=== PATIENT | female | born 1940 | race Caucasian/White ===

== ENCOUNTER 2019-01-11 13:43 | Day surgery (SDC) | payer OTHER, SELFPAY ==
[2019-01-10 14:44] VITALS: BMI 26.2
--- NOTE | 2019-01-11 | DI.RAD.S_ITS ---
PROCEDURE: XR LUMBAR SPINE 1V INDICATIONS: L4-5 LAMINECTOMY TECHNIQUE: 1 fluoroscopic view of the lumbar spine were acquired. COMPARISON: None available. FINDINGS: Needle is located at the L3-L4 level. 4 prong instrument is immediately posterior to the L4-L5 level. IMPRESSION: Intraoperative fluoroscopic image for surgical planning. Dictated by: Bj Garcia M.D. on 01/11/2019 at 17:11 Approved by: Bj Garcia M.D. on 01/11/2019 at 17:13
[2019-01-11 14:16] VITALS: BP 163/78; PULSE 81; RESP 16; TEMP 36.6; O2SAT 98; BMI 26.2
[2019-01-11] MEDS: LACTATED RINGERS 1,000 ML 42 ML IV (14:50)
--- NOTE | 2019-01-11 14:59 | PM.PREOP ---
Pre-operative Note Interval Note History & Physical reviewed/Exam performed by Physician: Yes Changes to H&P: No
[2019-01-11] MEDS: CEFAZOLIN 1 GM/50 ML FROZ.PIGGY IV (15:34)
--- NOTE | 2019-01-11 16:05 | SUR.OPER ---
Prone on spine table, head in foam head support, padded chest and pelvic supports, gel pad at knees, lower legs supported by pillows; nipples, genitalia and toes free of pressure, arms secured on foam padded arm boards at <90 degrees abduction. Tape over blanket at thigh secured to table.
[2019-01-11] MEDS: BUPIVACAINE 0.25% W/ EPI 30 ML VIAL INJ (16:12)
--- NOTE | 2019-01-11 16:51 | PM.OP.1 ---
Operative Date/Time/Diagnoses Date of procedure: 01/11/19 Time of procedure: 15:51 Pre-op diagnosis: 1. L4-5 spinal stenosis 2. Lumbar radiculopathy Post-op diagnosis: same Procedure & Clinicians Procedure: 1. L4-5 laminectomy with bilateral partial facetecomies 2. Utilization of microsurgical technique and operating microscope Same procedure as scheduled: Yes Indications: Patient has been having chronic back pain and worsening lumbar radiculopathy. Patient failed multiple conservative management with worsening pain weakness and numbness in her lower extremity. Patient has been having difficulty performing activity of daily living. After discussing risks benefits of treatment options, patient elected proceed with surgery. Surgeon: Kaitlynn Torres Metal Fabricator: Nita Cruz'Brien Click Yes if Unassisted: No Anesthesia Type: General Operative Notes Closure Type: primary Specimen(s): none sent Estimated Blood Loss (mL): 5 Blood products transfused: none Procedure in detail: Patient was seen in the preoperative area. Risks and benefits of the surgery was discussed with the patient. Informed consent was obtained from the patient and placed in the chart. Surgical site was marked. Patient was taken to the operative room. General anesthesia was administered. Prophylactic antibiotic was given to the patient less than 30 min before the incision was made. Patient was placed into a prone position on the [place] table. Patient's back was then prepped and draped in the sterile fashion. Time-out was performed at this time. Using AP and lateral C-arm imaging the interval between L4-5 was identified and marked on patient's back. A midline incision was made over the L4-5 interval. The fascia was incised in line with skin incision. Dissection was made down to the level of L4 lamina using bovie and a eubanks. Using microsurgical technique and operating microscope, a L4 laminectomy was performed using a Kerrison rongeur, Leksell rongeur and micro pituitary. Liagamentum flavum was resected at the site of the laminotomy. Either side of the dura was exposed. Bilateral partial facetcomies was performed to further decompress the lateral recess. After the laminectomy was completed, the area medial lateral superior and inferior to the area of the laminectomy was inspected and explored using a micro curette. No other impinging structure was identified. The wound was then irrigated with sterile normal saline. The deep fascia was closed with 1-0 Vicryl. The subcutaneous tissue was closed with 2-0 Vicryl. The skin was closed with skin ilya. Patient tolerated the procedure well. There were no complications. Patient was transferred recovery room in stable condition. Complications: none Condition: stable Disposition: same day surgery Plan for aftercare: Discharge to home
[2019-01-11 17:10] VITALS: BP 149/61; PULSE 80; RESP 18; TEMP 36.8; O2SAT 99
[2019-01-11 17:15] VITALS: BP 152/72; PULSE 86; RESP 16; O2SAT 97
[2019-01-11 17:20] VITALS: BP 141/71; PULSE 81; RESP 16; O2SAT 97
[2019-01-11] MEDS: OXYCODONE/ACETAMINOPHEN 5/325 TABLET 1 TAB PO (17:31)
[2019-01-11 17:39] VITALS: BP 139/55; PULSE 77; RESP 12; TEMP 36.6; O2SAT 97
== END 2019-01-11 18:14 | disposition home or self-care (01) ==
PROVIDERS: PCP Physician Assistant Medical; Visit Provider Orthopaedic Surgery Orthopaedic Surgery of the Spine
PROC: (CPT 63047; principal; 2019-01-11 15:15)
DX: M48.062 Spinal stenosis, lumbar region with neurogenic claudication (principal); M47.27 Other spondylosis with radiculopathy, lumbosacral region; I10 Essential (primary) hypertension; K21.9 Gastro-esophageal reflux disease without esophagitis
CPT/HCPCS: 63047; 72020; 76000; J1100; J2250; J2405; J2704; J3010